=== PATIENT | male | born 1945 | race Caucasian/White ===

== ENCOUNTER 2019-12-29 08:13 | Emergency (ER) | payer MEDICARE, SELFPAY ==
--- NOTE | 2019-12-29 08:14 | ED.GENADUL_ITS ---
Discharge Plan Disposition Patient Disposition: HOME Condition: Stable Discharge Details Chief Complaint: Urinary Clinical Impression: Pain in right testicle, Right varicocele Primary Care Provider: Saw Warner ED Provider: Radha Ewing Home Meds and New Rx's Prescriptions: Continued furosemide [Lasix] 20 mg Tablet 20 mg PO DAILY RF: 0 thiamine HCl (vitamin B1) [Vitamin B-1] 50 mg Tablet 50 mg PO DAILY RF: 0 Eliquis 5 mg Tablet 5 mg PO DAILY RF: 0 pantothenic acid (vit B5) 500 mg Tablet 500 mg PO DAILY RF: 0 Discharge Instructions Instructions: Varicocele (ED), Testicle Pain (ED) Additional Instructions: Wear underwear with scrotal support to help take pressure off your right testicle when standing or ambulating. Take Tylenol every 4 hours as needed for pain. Follow-up with urology at [facility] for further evaluation in the next week. You can also follow-up with urology here if needed. Return to the emergency department if you develop any worsening or new concerning symptoms such as fever, difficulty urinating, vomiting or abdominal pain. Referrals: Niko Leigh MD [ [facility] STAFF PHYSICIAN] - Discharge Data Discharge Date/Time-TO BE ENTERED AT DEPARTURE: 12/29/19 10:35 Discharge Physician: Radha Ewing Medical Decision Making 0820 -- 74-year-old male with a history of atrial fibrillation on Eliquis presents with right testicular pain and swelling since yesterday. Denies any fever, abdominal pain, urinary symptoms or injury. Patient was seen at [facility] earlier this morning for the same complaint and found to have a tender dime sized mass within the right testicle. He had a negative urinalysis there. Ultrasound was not available there and he was referred here for ultrasound. Right scrotum slightly increased in size compared to left side, may be anatomical. Right testicle feels normal in size compared to left but is tender with a questionable dime size mass posteriorly. There is no erythema, crepitus or ecchymosis. No inguinal lymphadenopathy. Patient has no fever and he appears nontoxic. Ultrasound coming in this morning for this US. 1020 -- Scrotal ultrasound noted complex bilateral hydroceles and a right varicocele. Discussed with patient that treatment of a varicocele generally includes scrotal support and NSAIDs. As patient is on Eliquis, recommend Tylenol. Patient feels good to go home. He is advised to follow-up with his urologist at [facility] for reevaluation. He was given our urology information if needed. Usual and customary return precautions given prior to discharge. Medical Records Medical records reviewed: Yes I reviewed the patient's medical records. Imaging Data Radiologic Study: Radiologist's impression: US Scrotum Exam date and time: 12/29/2019 8:52 AM Age: 74 years old Clinical indication: Swelling, testicles or scrotum; Scrotum pain and other: Right sided testicular pain and swelling TECHNIQUE: Imaging protocol: Real-time ultrasound of the scrotum and contents with color Doppler and image documentation. COMPARISON: No relevant prior studies available. FINDINGS: Right testicle: Right testis measures 3.3 x 3.3 x 3.4 cm. Inhomogeneous echotexture without intratesticular mass. Intratesticular blood flow demonstrated. Left testicle: Left testis measures 4.4 x 3.0 x 4.0 cm. Inhomogeneous echotexture without intratesticular mass. Intratesticular blood flow demonstrated. Epididymides: Subcentimeter epididymal cysts. Scrotum: Mild scrotal wall thickening. Complex bilateral hydroceles. Right varicocele. IMPRESSION: 1. Complex bilateral hydroceles and right varicocele. 2. Additional findings as described above. Lab Data Lab results reviewed: Yes I reviewed the patient's lab results. HPI General Mode of arrival: ambulatory . Date/Time Provider Initiated Documentation: 12/29/19 08:14 . Limitations to Documentation: no limitations . Information obtained by: patient . History of Present Illness 74 year old M presents to the emergency department with the chief complaint of Right testicular pain and swelling, Quality is described as aching and sharp, and is localized to the genitals. Patient reports no radiation. Patient started experiencing this day(s) (Since yesterday afternoon) and it has been intermittent. No relieving factors improve symptom(s), Other factors that worsen symptoms (With walking or palpation) . Patient notes denies fever/chills and nausea/vomiting. Patient did receive the following treatme nts prior to arrival, none Related Data Home Medications Medication Instructions Recorded Confirmed Eliquis 5 mg PO DAILY 12/29/19 12/29/19 furosemide [Lasix] 20 mg PO DAILY 12/29/19 12/29/19 pantothenic acid (vit B5) 500 mg PO DAILY 12/29/19 12/29/19 thiamine HCl (vitamin B1) [Vitamin 50 mg PO DAILY 12/29/19 12/29/19 B-1] Allergies Allergy/AdvReac Type Severity Reaction Status Date / Time influenza virus vacc AdvReac Skin Rash Unverified 12/29/19 08:20 trivalent, split Review of Systems All systems reviewed & are unremarkable except as noted in HPI and below Constitutional Constitutional: Reports as per HPI, Denies chills and Denies fever(s) Eyes Eyes: Denies blurry vision ENT Ears, Nose, Mouth, and Throat: Denies dizziness, Denies sore throat and Denies throat swelling Cardiovascular Cardiovascular: Denies chest pain and Denies dyspnea Respiratory Respiratory: Denies cough and Denies dyspnea Gastrointestinal Gastrointestinal: Denies abdominal pain, Denies diarrhea and Denies vomiting Genitourinary Genitourinary: Denies hematuria and Denies dysuria Musculoskeletal Musculoskeletal: Denies back pain and Denies numbness Integumentary/Breasts Skin/Breast: Denies lesions and Denies rash Neurologic Neurologic: Denies dizziness, Denies focal weakness and Denies numbness Allergic/Immunologic Allergic/Immunologic: Denies throat swelling [facility] Medical History Atrial fibrillation (Chronic) Surgical History History of knee replacement (Chronic) History of transurethral resection of prostate (Acute) Social History Smoking/Tobacco Use Status: Former Tobacco Use Alcohol Intake: former Drug use: Never Substance use type: does not use Do you feel safe at home: Yes Do you feel safe in your relationship?: Yes Exam Const General: cooperative, healthy appearing and no acute distress Nutritional Appearance: obese morbidly obese [facility] Head: normal to inspection Face and sinus: normal facial exam Eyes General: appearance normal, both eyes and all related structures EOM: EOM intact bilaterally Neck Neck: normal visual inspection and No submandibular swelling Lymphatic: no lymphadenopathy noted Chest Chest: normal inspection of the chest and no tenderness Resp Effort & Inspection: normal respiratory effort and able to speak in complete sentences Auscultation: clear to auscultation bilaterally Cardio Rate: regular rate Rhythm: regular rhythm GI Inspection: normal to inspection Palpation: soft, not firm, not rigid and nontender Auscultation: normal bowel sounds Other: Right scrotum larger in size compared to left which may be anatomical. Tenderness to palpation of right testicle within scrotum. There is a questionable small dime sized mass that is tender to palpation posterior to right testicle. There is no erythema, ecchymosis, crepitus or tense edema noted to right testicle. Penis normal to inspection. No groin tenderness or inguinal lymphadenopathy. Skin General skin exam: no rashes or lesions noted Neuro General: alert, awake and oriented x3 Cognition: normal cognition Speech: speech normal Motor: muscle tone normal throughout Sensory Exam: no sensory deficits noted Extrem General: normal to inspection, full ROM, normal capillary refill, no calf tenderness bilaterally and no edema Psych Appearance: grossly normal Mental Status: mental status grossly normal Speech and Movement: speech and movement normal Affect: normal affect
[2019-12-29 08:16] VITALS: BP 173/102; PULSE 80; RESP 20; TEMP 36.6; O2SAT 97
--- NOTE | 2019-12-29 09:45 | DI.US_ITS ---
EXAM: US SCROTUM CLINICAL HISTORY: R testicle pain and swelling, assess mass TECHNIQUE: Ultrasound performed using standard protocol. COMPARISON: No exams were available for comparison FINDINGS: The testicles are normal in size and echogenicity. There is no evidence of mass or torsion. There i s a cyst in the head of the right epididymis. There are bilateral hydroceles containing some debris. There is a right-sided varicocele. IMPRESSION: Bilateral complex hydroceles. Right varicocele. No evidence of torsion or mass. DATA REPOSITORY:
--- NOTE | 2019-12-29 10:13 | DI.VRAD_ITS ---
PROCEDURE INFORMATION: Exam: US Scrotum Exam date and time: 12/29/2019 8:52 AM Age: 74 years old Clinical indication: Swelling, testicles or scrotum; Scrotum pain and other: Right sided testicular pain and swelling TECHNIQUE: Imaging protocol: Real-time ultrasound of the scrotum and contents with color Doppler and image documentation. COMPARISON: No relevant prior studies available. FINDINGS: Right testicle: Right testis measures 3.3 x 3.3 x 3.4 cm. Inhomogeneous echotexture without intratesticular mass. Intratesticular blood flow demonstrated. Left testicle: Left testis measures 4.4 x 3.0 x 4.0 cm. Inhomogeneous echotexture without intratesticular mass. Intratesticular blood flow demonstrated. Epididymides: Subcentimeter epididymal cysts. Scrotum: Mild scrotal wall thickening. Complex bilateral hydroceles. Right varicocele. IMPRESSION: 1. Complex bilateral hydroceles and right varicocele. 2. Additional findings as described above. Dictated and Authenticated by: Elijah Naranjo MD. Ordering:JACK Garcia MD
[2019-12-29 10:35] VITALS: BP 170/95; PULSE 62; RESP 16; TEMP 36.6; O2SAT 97
== END 2019-12-29 10:35 | disposition home or self-care (01) ==
PROVIDERS: Emergency Provider Physician Assistant; PCP Family Medicine Adult Medicine
DX: I86.1 Scrotal varices (principal); N50.811 Right testicular pain; Z79.01 Long term (current) use of anticoagulants; I48.91 Unspecified atrial fibrillation
CPT/HCPCS: 99284; 76870; 99283